=== PATIENT | female | born 1990 | race Caucasian/White ===

== ENCOUNTER 2018-12-04 16:26 | Emergency (ER) | payer OTHER ==
--- NOTE | 2018-12-04 16:56 | ED ---
Psych HPI - General Chief Complaint: Psychiatric Symptoms Stated Complaint: mental health Source: patient, RN notes reviewed Mode of arrival: ambulatory Limitations: no limitations - History of Present Illness Initial Comments: 28-year-old female presents emergency department with police for psychiatric evaluation. Patient is on a court ordered petition for evaluation from mother. Patient states that she was recently seen at [facility] and admitted for psychiatric evaluation started on Abilify and Lamictal. Patient states prior to this he had no psychiatric history. Patient denies any suicidal or homicidal ideation. Denies any drug or alcohol abuse she does admit to some marijuana use today. Patient denies any physical complaints. Patient states that she left her fiance. Patient states that she's been trying to establish somewhere to live. 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 ROS Other: All systems not noted in ROS Statement are negative. Past Medical History Past Medical History: No Reported History History of Any Multi-Drug Resistant Organisms: None Reported Past Surgical History: Orthopedic Surgery Past Psychological History: No Psychological Hx Reported Smoking Status: Never smoker Past Alcohol Use History: None Reported Past Drug Use History: None Reported General Exam Limitations: no limitations General appearance: alert, in no apparent distress Head exam: Present: atraumatic, normocephalic, normal inspection Eye exam: Present: normal appearance, PERRL, EOMI. Absent: scleral icterus, conjunctival injection, periorbital swelling Neck exam: Present: normal inspection, full ROM. Absent: tenderness, meningismus, lymphadenopathy Respiratory exam: Present: normal lung sounds bilaterally. Absent: respiratory distress, wheezes, rales, rhonchi, stridor Cardiovascular Exam: Present: regular rate, normal rhythm, normal heart sounds. Absent: systolic murmur, diastolic murmur, rubs, gallop, clicks Neurological exam: Present: alert, oriented X3 Psychiatric exam: Present: normal affect, normal mood Skin exam: Present: warm, dry, intact, normal color. Absent: rash Course Vital Signs 12/04/18 16:28 Temperature 97.8 F Pulse Rate 82 Respiratory 18 Rate Blood Pressure 151/91 O2 Sat by Pulse 100 Oximetry Medical Decision Making - Medical Decision Making Patiently admitted for psychiatric evaluation. - Lab Data Lab Results 12/04/18 Range/Units 16:57 Urine Opiates Screen Not Detected (NotDetected) Ur Oxycodone Screen Not Detected (NotDetected) Urine Methadone Screen Not Detected (NotDetected) Ur Propoxyphene Screen Not Detected (NotDetected) Ur Barbiturates Screen Not Detected (NotDetected) U Tricyclic Antidepress Not Detected (NotDetected) Ur Phencyclidine Scrn Not Detected (NotDetected) Ur Amphetamines Screen Not Detected (NotDetected) U Methamphetamines Scrn Not Detected (NotDetected) U Benzodiazepines Scrn Not Detected (NotDetected) Urine Cocaine Screen Not Detected (NotDetected) U Marijuana (THC) Screen Detected H (NotDetected) Disposition Clinical Impression: Bipolar disorder Disposition: TRANSFER TO PSYCH HOSP/UNIT Condition: Stable Referrals: Gerard Topete MD [Primary Care Provider] - 1-2 days
[2018-12-04 17:36] LABS: Amphetamine Screen,Urine Not Detected (NotDetected); Barbiturate Screen,Urine Not Detected (NotDetected); Benzodiazepines Screen,Urine Not Detected (NotDetected); Cocaine Screen,Urine Not Detected (NotDetected); Methadone Screen, Urine Not Detected (NotDetected); Opiate Screen,Urine Not Detected (NotDetected); Oxycodone Screen, Urine Not Detected (NotDetected); Phencyclidine Screen,Urine Not Detected (NotDetected); Tricyclic Antidepressant,Urine Not Detected (NotDetected); Urn Cannabinoid Scrn Detected (NotDetected)
[2018-12-04] MEDS ORDERED: LORazepam 1 MG TAB PO STA (20:59)
[2018-12-05 02:49] LABS: Basophils # (A) 0.1 k/uL (0-0.2); Basophils % (A) 0 %; Eosinophils # (A) 0.3 k/uL (0-0.7); Eosinophils % (A) 2 %; HCT 37.3 % (34.0-46.0); HGB 12.4 gm/dL (11.4-16.0); Lymphocytes # (A) 2.7 k/uL (1.0-4.8); Lymphocytes % (A) 17 %; MCHC 33.4 g/dL (31.0-37.0); MCV 95.8 fL (80.0-100.0); Mean Platelet Volume 6.2; Monocytes # (A) 0.6 k/uL (0-1.0); Monocytes % (A) 4 %; Neutrophils # (A) 12.4 k/uL (1.3-7.7); Neutrophils % (A) 76 %; Platelet Count 323 k/uL (150-450); RBC 3.89 m/uL (3.80-5.40); RDW 14.9 % (11.5-15.5); WBC 16.3 k/uL (3.8-10.6)
[2018-12-05 03:00] LABS: ALT 18 U/L (9-52); AST 19 U/L (14-36); African American GFR (CKD) >90 (>60 ml/min/1.73 sqM); Alkaline Phosphatase 44 U/L (38-126); Anion Gap 6 mmol/L; Blood Urea Nitrogen 19 mg/dL (7-17); Calcium 9.4 mg/dL (8.4-10.2); Carbon Dioxide 27 mmol/L (22-30); Chloride 105 mmol/L (98-107); Glucose 89 mg/dL (74-99); Potassium 3.8 mmol/L (3.5-5.1); Sodium 138 mmol/L (137-145); Total Bilirubin 0.2 mg/dL (0.2-1.3); Total Protein 6.3 g/dL (6.3-8.2)
[2018-12-05 04:55] VITALS: TEMP 98.1
[2018-12-05 07:48] VITALS: BP 120/88; PULSE 66; RESP 18
== END 2018-12-05 07:48 ==
LOC: EC 16:26
DX: F31.9 Bipolar disorder, unspecified (principal); Z79.899 Other long term (current) drug therapy
CPT/HCPCS: 36415; 80053; 80306; 81025; 82075; 85025; 99284

== ENCOUNTER 2019-12-29 12:59 | Inpatient (IN) | payer OTHER ==
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
[2019-12-29] MEDS ORDERED: DIPH,PERTUS(ACELL)TETVAC-LF 0.5 ML VIAL IM ONE (13:20)
[2019-12-29] MEDS ORDERED: LORazepam 2 MG/ML INJ IM STA (14:12)
[2019-12-29] MEDS ORDERED: MAGNESIUM HYDROXIDE 2,400 MG/10 ML CUP PO PRN (15:07)
[2019-12-29] MEDS ORDERED: ACETAMINOPHEN TAB 325 MG TAB PO PRN (15:07)
[2019-12-29] MEDS ORDERED: MAG HYDROX/AL HYDROX/SIMETH 30 ML CUP PO PRN (15:07)
[2019-12-29] MEDS ORDERED: LORazepam 1 MG TAB PO PRN (15:07)
[2019-12-29] MEDS ORDERED: HALOPERIDOL LACTATE 5 MG/ML 1 ML VIAL IM PRN (15:11)
[2019-12-29] MEDS ORDERED: LORazepam 2 MG/ML INJ IM PRN (15:12)
[2019-12-29 15:13] LABS: Appearance,Urine Clear (Clear); Bilirubin,Urine Negative (Negative); Blood,Urine Negative (Negative); Color,Urine Yellow; Glucose,Urine (UA) Negative (Negative); Ketones,Urine 3+ (Negative); Leukocyte Esterase,Urine Negative (Negative); Nitrite,Urine Negative (Negative); Protein,Urine Trace (Negative); Specific Gravity,Urine 1.031 (1.001-1.035); Urobilinogen,Urine <2.0 mg/dL (<2.0)
[2019-12-29 15:23] LABS: Amphetamine Screen,Urine Not Detected (NotDetected); Barbiturate Screen,Urine Not Detected (NotDetected); Benzodiazepines Screen,Urine Not Detected (NotDetected); Cocaine Screen,Urine Not Detected (NotDetected); Methadone Screen, Urine Not Detected (NotDetected); Opiate Screen,Urine Not Detected (NotDetected); Oxycodone Screen, Urine Not Detected (NotDetected); Phencyclidine Screen,Urine Not Detected (NotDetected); Tricyclic Antidepressant,Urine Not Detected (NotDetected); Urn Cannabinoid Scrn Detected (NotDetected)
[2019-12-29 16:39] VITALS: BP 132/97; PULSE 102; RESP 20; TEMP 98.3
[2019-12-29] MEDS ORDERED: lamoTRIgine 25 MG TAB PO SCH (21:00)
[2019-12-30] MEDS ORDERED: ARIPiprazole 5 MG TAB PO SCH (09:00)
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
== END 2019-12-29 22:08 | disposition short-term general hospital (02) | DRG 885 ==
LOC: EDBD → EC 12:59 → 3MHU 15:03 → MERGE 15:03
PROVIDERS: ADMIT Psychiatry & Neurology Psychiatry; ATTEND Psychiatry & Neurology Psychiatry
PROC: 3E0234Z Introduction of Serum, Toxoid and Vaccine into Muscle, Percutaneous Approach (ICD-10-PCS; principal; 2019-12-29)
DX: F31.2 Bipolar disorder, current episode manic severe with psychotic features (principal); U07.1 COVID-19; Z91.128 Patient's intentional underdosing of medication regimen for other reason; T50.906A Underdosing of unspecified drugs, medicaments and biological substances, initial encounter; R45.6 Violent behavior; Z78.1 Physical restraint status; Z23 Encounter for immunization
CPT/HCPCS: 80306; 81003; 81025; 82075; 87635; 90471; 90715; 96372; 99285

== ENCOUNTER 2019-12-29 21:17 | Observation (INO) | payer OTHER ==
[2019-12-29] MEDS ORDERED: MAGNESIUM HYDROXIDE 2,400 MG/10 ML CUP PO PRN (23:22)
[2019-12-29] MEDS ORDERED: LORazepam 1 MG TAB PO PRN (23:22)
[2019-12-29] MEDS ORDERED: MAG HYDROX/AL HYDROX/SIMETH 30 ML CUP PO PRN (23:22)
[2019-12-29] MEDS ORDERED: LORazepam 2 MG/ML INJ IV PRN (23:22)
[2019-12-29] MEDS ORDERED: HALOPERIDOL LACTATE 5 MG/ML 1 ML VIAL IM PRN (23:22)
[2019-12-30] MEDS: SODIUM CHLORIDE 0.9% 1,000 ML IV SCH (00:54)
[2019-12-30] MEDS ORDERED: ARIPiprazole 5 MG TAB PO SCH (09:00)
[2019-12-30] MEDS: lamoTRIgine 25 MG TAB PO SCH ×2 (09:04→21:21)
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
[2019-12-30] MEDS: ENOXAPARIN 40 MG/0.4 ML SYRINGE SQ SCH (15:49)
--- NOTE | 2019-12-30 16:06 | P.HPIM ---
History of Present Illness H&P Date: 12/30/19 this is a 21-year-old female patient with history of bipolar disorder who was apparently brought to the hospital by her mother because she was having episodes of sharad. She was initially admitted to the psychiatric floor, Covid screening test resulted positive and as a result she was transferred to the medical floor here. She apparently had not been taking any of her psychiatric medications for about 6 months and documented dictation indicates she had been having an episode of sharad. At time of assessment patient is resting in bed comfortably, she does not appear to be in any acute distress. She is afebrile and hemodynamically stable. On room air saturating above 90%. Patient is unable historian, reports that she does not smoke cigarettes, she occasionally uses marijuana Gummys. she denies shortness of breath, chest pain, or palpitation. Reports having occasional nonproductive cough. 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 denies nausea, vomiting or diarrhea. Review of Systems Review Of Systems: Constitutional: No fever, no chills, no night sweats. EENT: No headache. No blurred vision or double vision, no loss of vision. No loss of Hearing, no ringing in the ears, no dizziness. Lungs: No shortness of breath, cough, no sputum production. No wheezing. Cardiovascular: No chest pain, no lower extremity edema. No palpitations. No paroxysmal nocturnal dyspnea. No lightheadedness or dizziness. Abdominal: No abdominal pain. No nausea, vomiting. No diarrhea. No constipation Genitourinary: No dysuria, increased frequency, urgency. No urinary retention. Musculoskeletal: No myalgias. No muscle weakness, no gait dysfunction, no frequent falls. No back pain. No neck pain. Integumentary: No wounds, no lesions. No rash or pruritus. No unusual bruising. No change in hair or nails. Neurologic: No aphasia. No facial droop. No head injury. No headache. No paralysis. No paresthesia. Psychiatric: as mentioned in HPI Past Medical History Past Medical History: No Reported History History of Any Multi-Drug Resistant Organisms: None Reported Past Surgical History: Orthopedic Surgery Additional Past Surgical History / Comment(s): acl and mcl repair Past Anesthesia/Blood Transfusion Reactions: No Reported Reaction Past Psychological History: Bipolar, PTSD Smoking Status: Never smoker Past Alcohol Use History: Heavy Additional Past Alcohol Use History / Comment(s): whiskey or wine more than normal last couple of days Past Drug Use History: Marijuana - Past Family History Mother Additional Family Medical History / Comment(s): bipolar Brother(s) Additional Family Medical History / Comment(s): . found by pt unresponsive Medications and Allergies Home Medications Medication Instructions Recorded Confirmed Type Forskolin 1 tab PO DAILY 12/29/19 12/29/19 History Melatonin Gummy 1 tab PO HS 12/29/19 12/29/19 History diphenhydrAMINE HCL [Benadryl] 25 mg PO HS 12/29/19 12/29/19 History Allergies Allergy/AdvReac Type Severity Reaction Status Date / Time No Known Allergies Allergy Verified 12/29/19 23:16 Physical Exam Vitals: Vital Signs Temp Pulse Resp BP Pulse Ox 12/30/19 15:11 80 16 12/30/19 12:30 97.8 F 80 16 129/86 98 12/30/19 08:00 95 16 12/29/19 23:11 96.6 F L 95 16 136/101 98 Intake and Output 12/30/19 12/30/19 12/30/19 06:59 14:59 22:59 Intake Total 100 240 Balance 100 240 Intake: Intake, IV Titration 100 Amount Sodium Chloride 0.9% 1, 100 000 ml @ 20 mls/hr IV . Q24H [facility] Rx#:[id number] Oral 240 Other: Voiding Method Toilet Toilet Toilet # Voids 4 Gen: This is a 29-year-old female resting in bed, appears in no acute distress HEENT: Head is atraumatic, normocephalic. Pupils equal, round. Sclerae is anicteric. NECK: Supple. No JVD. No lymphadenopathy. No thyromegaly. LUNGS: Clear to auscultation. No wheezes or rhonchi. No intercostal retractions. HEART: Regular rate and rhythm. No murmur. ABDOMEN: Soft. Bowel sounds are present. No masses. No tenderness. EXTREMITIES: No pedal edema. No calf tenderness. NEUROLOGICAL: Patient is awake, alert and oriented x3. no focal deficits Thrombosis Risk Factor Assmnt - Choose All That Apply Any of the Below Risk Factors Present?: No Other Risk Factors: No Other congenital or acquired thrombophilia - If yes, enter type in comment: No Thrombosis Risk Factor Assessment Level: Very Low Risk Assessment and Plan Assessment: -Positive Covid 19 test: patient appears to be asymptomatic at this time, we'll check routine labs, inflammatory markers, maintaining appropriate isolation measures, get a baseline chest x-ray and continue to monitor her clinical condition. -bipolar disorder with sharad: psychiatry is following, maintained on Abilify and Lamictal, Haldol for acute psychosis. per psychiatry patient will require transfer to inpatient psychiatric facility which will accept Covid-19 positive patients, social work is following. -DVT prophylaxis: Subcutaneous Lovenox
[2019-12-30 16:32] LABS: Basophils % (A) 1 %; Eosinophils # (A) 0.2 k/uL (0-0.7); Eosinophils % (A) 3 %; HCT 41.6 % (34.0-46.0); HGB 13.7 gm/dL (11.4-16.0); Lymphocytes # (A) 1.3 k/uL (1.0-4.8); Lymphocytes % (A) 27 %; MCH 31.4 pg (25.0-35.0); MCV 95.3 fL (80.0-100.0); Mean Platelet Volume 7.7; Monocytes # (A) 0.4 k/uL (0-1.0); Monocytes % (A) 8 %; Neutrophils # (A) 2.9 k/uL (1.3-7.7); Neutrophils % (A) 60 %; Platelet Count 235 k/uL (150-450); RBC 4.36 m/uL (3.80-5.40); RDW 14.5 % (11.5-15.5); WBC 4.8 k/uL (3.8-10.6)
[2019-12-30 17:03] LABS: African American GFR (CKD) >90 (>60 ml/min/1.73 sqM); Anion Gap 7 mmol/L; Blood Urea Nitrogen 14 mg/dL (7-17); C Reactive Protein 6.2 mg/L (<10.0); Calcium 9.5 mg/dL (8.4-10.2); Carbon Dioxide 26 mmol/L (22-30); Chloride 105 mmol/L (98-107); Glucose 90 mg/dL (74-99); Non-African American GFR(CKD) >90 (>60 ml/min/1.73 sqM); Potassium 4.5 mmol/L (3.5-5.1); Sodium 138 mmol/L (137-145)
--- NOTE | 2019-12-30 18:14 | XR ---
EXAMINATION TYPE: XR chest 1V DATE OF EXAM: 12/30/2019 COMPARISON: NONE HISTORY: Shortness of breath. TECHNIQUE: Single frontal view of the chest is obtained. FINDINGS: There is no focal air space opacity, pleural effusion, or pneumothorax seen. The cardiac silhouette size is within normal limits. The osseous structures are intact. IMPRESSION: No acute process.
[2019-12-30] MEDS: ALBUTEROL HFA INHALER INHALATION PRN (20:01)
[2019-12-30] MEDS: FAMOTIDINE 20 MG TAB PO SCH (21:21)
[2019-12-30] MEDS: ACETAMINOPHEN TAB 325 MG TAB PO PRN (22:49)
[2019-12-31] MEDS: SODIUM CHLORIDE 0.9% 1,000 ML IV SCH (04:45)
[2019-12-31] MEDS: ALBUTEROL HFA INHALER INHALATION PRN ×3 (08:40→21:19)
[2019-12-31] MEDS: FAMOTIDINE 20 MG TAB PO SCH ×2 (09:16→20:59)
[2019-12-31] MEDS: ENOXAPARIN 40 MG/0.4 ML SYRINGE SQ SCH (09:17)
[2019-12-31] MEDS: lamoTRIgine 25 MG TAB PO SCH (09:17)
[2019-12-31] MEDS: ARIPiprazole 5 MG TAB PO SCH (09:17)
[2019-12-31 09:34] LABS: African American GFR (CKD) 116.3 (60.0-200.0); Anion Gap 3.4 mmol/L (4.00-12.00); BUN/Creat Ratio 13.75 Ratio (12.00-20.00); Calcium 9.2 mg/dL (8.7-10.3); Carbon Dioxide 27.6 mmol/L (21.6-31.8); Non-African American GFR(CKD) 100.3 (60.0-200.0); Potassium 4.3 mmol/L (3.5-5.5)
--- NOTE | 2019-12-31 11:52 | P.PN ---
Progress Note - Text Progress Note Date: 12/31/19 Interval History: Patient was seen today for psychiatric follow-up regarding patient's bipolar d isorder. Patient continues to be in isolation with a sitter at her side. Patient appeared to be more appropriately with the magazine writer today and was calm and cooperative. She states that she is doing overall better on the medications. She asked more appropriate questions regarding her care. She states that her mood is "okay" today and denied any overnight complaints. She states that the Lamictal is making her tired and would prefer to have it all dosed at nighttime. She states that she cannot remember her previous dose of Abilify. Her insight and judgment have been improving. At this time patient denies any suicidal or homical ideations, intent or plan. Patient denies any auditory, visual hallucinations and denies any paranoia or delusions. Patient denies any side effects from the medications and has been compliant with meds. Mental Status Exam: General Appearance: Patient appears to be stated age is alert, pleasant, and attempts to be cooperative. Patient appears to have poor hygiene and grooming wearing hospital gown with fair eye contact. Behavior: Patient is calmly lying in bed without any agitated behavior. Attempts to be cooperative. Speech: Patient's speech is fluent and nonpressured. Mood/Affect: Patient reports their mood is "ok", affect is congruent and constricted Suicidality/Homicidality: Patient denies having any suicidal or homicidal ideation intent or plan. Perceptions: Patient denies any visual hallucinations and denies any auditory hallucinations Though content/process: No flight of ideas or racing thoughts. No paranoia or delusions. Logical goal oriented. Memory and concentration: AOX3, grossly intact for the purposes of this session Judgment and insight: improving mildly Assessment: Bipolar disorder, currently in manic episode Plan: -At this time patient DOES meet criteria for inpatient psychiatric admission, however due to patient testing positive for coronavirus she is not eligible to be admitted to at this time -Would recommend the following medication changes/additions: Continue with Abilify to 7.5 mg daily for mood stabilization/psychosis. Increased Lamictal 100 mg qhs for mood stabilization. -Continue 1:1 sitter for safety -hot mill worker to provide patient with outpatient mental health/psychiatry resources for appropriate follow up upon discharge -Communicated plan to patient's nurse -Will continue to follow along and will see patient tomorrow, will likely will sign off tomorrow patient can be discharged likely tomorrow directly from the medical floors if she is medically cleared. -Please contact with any questions.
--- NOTE | 2019-12-31 15:57 | P.PN ---
Subjective Progress Note Date: 12/31/19 this is a 21-year-old female patient with history of bipolar disorder who was apparently brought to the hospital by her mother because she was having episodes of sharad. She was initially admitted to the psychiatric floor, Covid screening test resulted positive and as a result she was transferred to the medical floor here. She apparently had not been taking any of her psychiatric medications for about 6 months and documented dictation indicates she had been having an episode of sharad. At time of assessment patient is resting in bed comfortably, she does not appear to be in any acute distress. She is afebrile and hemodynamically stable. On room air saturating above 90%. Patient is unable historian, reports that she does not smoke cigarettes, she occasionally uses marijuana Gummys. she denies shortness of breath, chest pain, or palpitation. Reports having occasional nonproductive cough. 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 denies nausea, vomiting or diarrhea. 12/31/2019 Patient is seen and evaluated and follow-up with no acute overnight issues. Patient does have a sitter at the bedside as she has petitioned. Psychiatry following an reevaluated today recommending reevaluation tomorrow. Social work consulted for possible placement in a psychiatric facility as she is Covid positive and unable to accommodate here in [facility]. Minor abrasions noted on the face and nose with no active bleeding noted and healing. Patient denies any suicidal or homicidal ideation and no thoughts of wanting to hurt herself. Review of systems: Constitutional: No reports of fatigue, fever, or chills Cardiovascular: No reports of chest pain or palpitations Respiratory: No reports of shortness of breath or cough GI: No reports of nausea, vomiting, or diarrhea : No reports of dysuria or retention Neurovascular: No reports of weakness or numbness All medications have been reviewed Objective - Vital Signs Vital signs: Vital Signs Temp 98.4 F 12/31/19 08:17 Pulse 83 12/31/19 08:17 Resp 17 12/31/19 08:17 BP 125/81 12/31/19 08:17 Pulse Ox 99 12/31/19 08:17 Intake & Output 12/30/19 12/31/19 12/31/19 18:59 06:59 18:59 Intake Total 240 480 360 Balance 240 480 360 Intake: Oral 240 480 360 Other: Voiding Method Toilet Toilet Toilet # Voids 4 3 4 - Exam Gen: This is a 29-year-old female in bed, awake, alert and oriented 3, appears in no acute distress HEENT: Head is atraumatic, normocephalic. Pupils equal, round. Sclerae is anicteric. Minor scrapes and abrasions noted to nose and forehead with no signs of redness or infection NECK: Supple. No JVD. No lymphadenopathy. No thyromegaly. LUNGS: Clear to auscultation. No wheezes or rhonchi. No intercostal retraction s. HEART: Regular rate and rhythm. No murmur. ABDOMEN: Soft. Bowel sounds are present. No masses. No tenderness. EXTREMITIES: No pedal edema. No calf tenderness. NEUROLOGICAL: Patient is awake, alert and oriented x3. no focal deficits Psychiatric: Cooperative, nonsuicidal, alert and oriented 3, calm - Labs CBC & Chem 7: 12/30/19 16:18 12/31/19 05:24 Labs: Abnormal Lab Results - Last 24 Hours (Table) 12/31/19 Range/Units 05:24 Anion Gap 3.40 L (4.00-12.00) mmol/L Assessment and Plan Assessment: -Positive Covid 19 test: patient appears to be asymptomatic at this time, maintain isolation precautions -bipolar disorder with sharad: psychiatry is following, maintained on Abilify and Lamictal, Haldol for acute psychosis. Patient being evaluated by psychiatry t omorrow with the possibility of placement at an inpatient psychiatric facility that will accept Covid-positive patients. Social work is following -DVT prophylaxis: Subcutaneous Lovenox Plan: Reevaluate patient in the morning and await psychiatric evaluation. Social Work to follow as patient may require inpatient psychiatric facility that accommodates Covid-positive patients. Continue with sitter at this time as patient has petitioned. Further recommendations to follow.
[2019-12-31 19:57] VITALS: RESP 16
[2019-12-31] MEDS: ACETAMINOPHEN TAB 325 MG TAB PO PRN (20:58)
[2019-12-31] MEDS ORDERED: lamoTRIgine 100 MG TAB PO SCH (21:00)
[2019-12-31] MEDS ORDERED: lamoTRIgine 25 MG TAB PO SCH (21:00)
[2020-01-01 05:11] VITALS: BP 112/67; PULSE 77; TEMP 98
[2020-01-01] MEDS: SODIUM CHLORIDE 0.9% 1,000 ML IV SCH (06:16)
[2020-01-01] MEDS: ALBUTEROL HFA INHALER INHALATION PRN (08:44)
[2020-01-01] MEDS: FAMOTIDINE 20 MG TAB PO SCH (09:10)
[2020-01-01] MEDS: ENOXAPARIN 40 MG/0.4 ML SYRINGE SQ SCH ×2 (09:10→09:11)
--- NOTE | 2020-01-01 12:30 | P.DS ---
Providers Date of admission: 12/29/19 22:06 Expected date of discharge: 01/01/20 Attending physician: Roma Rodas Consults: 12/29/19 23:19 Consult Physician Routine Consulting Provider: Sergio William Consult Reason/Comments: pyschosis Do you want consulting provider notified?: Already Contacted Primary care physician: Stated None Hospital Course: Final diagnosis -Positive Covid 19 test -bipolar disorder with sharad -DVT prophylaxis Discharge disposition Patient is being discharged in a stable condition with guarded prognosis to home. Patient will follow-up with Dr. Marie in the outpatient setting upon discharge. Patient to follow-up outpatient with psychiatry and [facility]. Total time taken is greater than 35 minutes. History of present illness This is a 29-year-old female who was recently admitted with episodes of sharad and was petitioned by her mother and was being closely monitored. She was seen and evaluated by psychiatry and recommending inpatient evaluation although unable to accommodate your Mark on the unit as she tested positive for Covid 19. Psychiatry followed the patient and continued with fire safety manager one-on-one. Patient was restarted on Lamictal along with Abilify and prescription provided her to continue in the outpatient setting . Patient will be discharged home and will be following up with her primary care provider along with her psychiatrist upon discharge. Resources provided. Patient's currently denying any shortness of breath and oxygen saturation is 98-99% on room air. Patient has not been having any fevers and states she feels fine. Patient instructed to continue to quarantine for at least 10 days and until symptom-free for 3 days. Patient will follow-up with primary care provider upon discharge. Currently no reports of chest pain, shortness of breath, or palpitations. Patient is afebrile. No reports of nausea or vomiting and patient is tolerating diet. Patient will be discharged to home today. On exam vital signs are stable. Temp is 98.0F, pulse is 77, respirations are 16, blood pressure is 112/67, oxygen saturation is 99% on room air. Cardio S1, S2 are muffled. Respiratory system shows diminished breath sounds at the bases with no wheezing or rhonchi noted. Abdomen is soft and obese, and nontender. Nervous system shows no focal deficits. Please refer to medication reconciliation sheet for a list of medications. Patient Condition at Discharge: Stable Plan - Discharge Summary Discharge Rx Participant: No New Discharge Prescriptions: New ARIPiprazole [Abilify] 7.5 mg PO DAILY 30 Days #60 tab lamoTRIgine [LaMICtal] 100 mg PO HS 30 Days #30 tab Acetaminophen Tab [Tylenol] 650 mg PO Q4HR PRN tab PRN Reason: Fever And/ Or Pain Albuterol Inhaler [Ventolin Hfa Inhaler] 2 puff INHALATION RT-QID PRN #1 puff PRN Reason: Shortness Of Breath Or Wheezing Continue diphenhydrAMINE HCL [Benadryl] 25 mg PO HS Melatonin Gummy 1 tab PO HS Forskolin 1 tab PO DAILY Discharge Medication List Forskolin 1 tab PO DAILY 12/29/19 [History] Melatonin Gummy 1 tab PO HS 12/29/19 [History] diphenhydrAMINE HCL [Benadryl] 25 mg PO HS 12/29/19 [History] ARIPiprazole [Abilify] 7.5 mg PO DAILY 30 Days #60 tab 01/01/20 [Rx] Acetaminophen Tab [Tylenol] 650 mg PO Q4HR PRN tab 01/01/20 [Rx] Albuterol Inhaler [Ventolin Hfa Inhaler] 2 puff INHALATION RT-QID PRN #1 puff 01/01/20 [Rx] lamoTRIgine [LaMICtal] 100 mg PO HS 30 Days #30 tab 01/01/20 [Rx] Follow up Appointment(s)/Referral(s): Annie Marie MD [REFERRING] - 1-2 Days Patient Instructions/Handouts: Viral Pneumonia (DC) Activity/Diet/Wound Care/Special Instructions: Activity Limited until follow-up Continue current diet May use albuterol inhaler as needed if shortness of breath Continue taking medications as prescribed Continue to quarantine for 10 days and until symptom-free for 3 days Follow-up with outpatient psychiatry Follow-up with primary care provider Discharge/Stand Alone Forms: Community Resources, Outpatient Counseling Discharge Disposition: HOME SELF-CARE
--- NOTE | 2020-01-01 13:14 | P.PN ---
Progress Note - Text Progress Note Date: 01/01/20 Interval History: Patient was seen today for psychiatric follow-up regarding patient's bipolar d isorder. Patient continues to be in isolation with a sitter at her side. Patient appeared to have improvement in her insight today and was more cooperative and calm with production underwriter during interview. She states that she is feeling well enough to go home today. She claims that she was able to sleep better last night as her Lamictal was switched to nighttime dosing. She states that her mood is "much better". She denied any anxiety. She states that she's been eating her meals and taking her medications as prescribed. Patient asked questions about her Abilify and also her Lamictal which were answered by production underwriter. At this time patient denies any suicidal or homical ideations, intent or plan. Patient denies any auditory, visual hallucinations and denies any paranoia or delusions. Patient denies any side effects from the medications and has been compliant with meds. Patient did state that approximately 2-3 days ago she noticed a minor rash on her chest which has been stable and appeared to be nonpruritic and localized just over her chest, no pustules were seen. Him Coder discussed the importance of continuing to monitor to see if the rash increases as this could be a side effect from Lamictal. Him Coder discussed the importance of seeking urgent medical attention and stopping the Lamictal if the rash gets worse, patient verbally understood and agreed. Mental Status Exam: General Appearance: Patient appears to be stated age is alert, pleasant, and attempts to be cooperative. Patient appears to have poor hygiene and grooming wearing hospital gown with fair eye contact. Behavior: Patient is calmly lying in bed without any agitated behavior. cooperative. Speech: Patient's speech is fluent and nonpressured. Mood/Affect: Patient reports their mood is "good", affect is congruent Suicidality/Homicidality: Patient denies having any suicidal or homicidal ideation intent or plan. Perceptions: Patient denies any visual hallucinations and denies any auditory hallucinations Though content/process: No flight of ideas or racing thoughts. No paranoia or delusions. Logical goal oriented. Memory and concentration: AOX3, grossly intact for the purposes of this session Judgment and insight: improving mildly Assessment: Bipolar disorder, currently in manic episode Plan: -Would recommend the following medication changes/additions: Continue with Abilify to 7.5 mg daily for mood stabilization/psychosis. Continue with Lamictal 100 mg qhs for mood stabilization. Him Coder spoke with patient in depth about the side effects including of a potential rash from Lamictal. -Him Coder discussed the importance of continuing to monitor to see if the rash increases as this could be a side effect from Lamictal. Him Coder discussed the importance of seeking urgent medical attention and stopping the Lamictal if the rash gets worse, patient verbally understood and agreed. -metalworker to provide patient with outpatient mental health/psychiatry resources for appropriate follow up upon discharge. Patient follows up with her psychiatrist at [facility] and also has a counselor at [facility]. -Communicated plan to patient's nurse and left a VM for planning for patients discharge. -Patient denied any access to guns or weapons at home and ensured to her that if her condition worsens then she is to seek urgent medical attention. -At this time will sign off on patients care and she can be appropriate for discharge once she is medically cleared. -Please contact with any questions.
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
== END 2020-01-01 12:04 | disposition home or self-care (01) ==
LOC: 6NMEDSUR 22:06
PROVIDERS: ADMIT Hospitalist; ATTEND Hospitalist
DX: U07.1 COVID-19 (principal); F31.9 Bipolar disorder, unspecified; R21 Rash and other nonspecific skin eruption; F43.10 Post-traumatic stress disorder, unspecified; Z74.3 Need for continuous supervision; Z98.890 Other specified postprocedural states; Z87.39 Personal history of other diseases of the musculoskeletal system and connective tissue; Z79.899 Other long term (current) drug therapy; Z81.8 Family history of other mental and behavioral disorders; Z81.3 Family history of other psychoactive substance abuse and dependence
CPT/HCPCS: 96372 ×2; 94640 ×4; 85379; 80048 ×2; 85025; 86140; 71045; G0379; G0378 ×4; J1630; J1650